=== PATIENT | male | born 1935 | race Caucasian/White ===

== ENCOUNTER 2017-10-08 11:55 | Emergency (ER) | payer OTHER, MEDICARE ==
[~2017-10-08] VITALS: Ht 177.8 cm; Wt 83.0 kg
--- NOTE | ~2017-10-08 | EKG ---
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
[~2017-10-08 11:55] MED LIST: ASPIR 8181 M1 PO; FENTANYL PA25 MCG/HR; IBUPROFEN 800800 MG PO; MEDROLDOSEPACK PO; NABUMETONE 500500 M1; NORCO 5-325 TA1 EACH PO; TRAMADOL 50 MG50 MG; TRILIPIX135 MG
[2017-10-08 12:53] LABS: HEMATOCRIT 47.6 % (42.0-52.0); HEMOGLOBIN 16.2 gm/dL (14.0-18.0); MCH 32.3 pg (26.0-34.0); MCHC 34.1 g/dL (28.0-37.0); MCV 94.6 fL (80.0-100.0); RBC 5.03 mil/uL (4.50-6.00); RDW 13.1 % (10.5-14.5); WBC 13.3 thou/uL (4.0-11.0)
[2017-10-08] MEDS ORDERED: VITAMIN D2000 UNIT PO (13:04)
[2017-10-08] MEDS ORDERED: ARICEPT 5 MG TAB5 MG PO (13:04)
[2017-10-08] MEDS ORDERED: NAMENDA 10 MG T10 MG PO (13:04)
[2017-10-08 13:05] LABS: ANION GAP 7 mmol/L (7-16); BUN 17 mg/dL (7-18); CALCIUM 9.6 mg/dL (8.5-10.1); CHLORIDE 103 mmol/L (98-107); CO2 29 mmol/L (21-32); CREATININE 1.1 mg/dL (0.7-1.3); GLUCOSE 121 mg/dL (74-106); POTASSIUM 4.4 mmol/L (3.5-5.1); SODIUM 139 mmol/L (136-145)
[2017-10-08 13:14] LABS: TROPONIN-I < 0.04 ng/mL (<0.06)
[2017-10-08 14:32] LABS: URINE BILIRUBIN NEGATIVE (Negative); URINE BLOOD TRACE (Negative); URINE COLOR YELLOW; URINE GLUCOSE-RANDOM* TRACE (Negative); URINE KETONES NEGATIVE (Negative); URINE LEUKOCYTES-REFLEX NEGATIVE (Negative); URINE PROTEIN (DIPSTICK) TRACE (Negative); URINE SPECIFIC GRAVITY 1.025 (1.005-1.035); URINE UROBILINOGEN 0.2 E.U./dl (0.2-1.0)
[2017-10-08 14:40] VITALS: BP 137/71
== END 2017-10-08 14:57 | disposition home or self-care (01) ==
LOC: ER 11:55
PROVIDERS: Emergency Medicine
DX: M79.602 Pain in left arm (principal); M79.652 Pain in left thigh; Z98.890 Other specified postprocedural states

== ENCOUNTER 2018-07-21 18:21 | Emergency (ER) | payer OTHER, MEDICARE ==
[~2018-07-21] VITALS: Ht 177.8 cm; Wt 85.3 kg
--- NOTE | ~2018-07-21 | EKG ---
[place] [address] [facility] [place] [address] ELECTROCARDIOGRAM REPORT Name: PB ARELLANO Room #: DEP [facility] 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
[~2018-07-21 18:21] MED LIST changes: +ARICEPT 5 MG TAB5 MG PO; +NAMENDA 10 MG T10 MG PO; +VITAMIN D2000 UNIT PO
[2018-07-21 20:03] LABS: HEMATOCRIT 45.2 % (42.0-52.0); HEMOGLOBIN 15.3 gm/dL (14.0-18.0); MCHC 33.9 g/dL (28.0-37.0); MCV 94.2 fL (80.0-100.0); RBC 4.8 mil/uL (4.50-6.00); RDW 12.6 % (10.5-14.5)
[2018-07-21 20:15] LABS: ANION GAP 4 mmol/L (7-16); BUN 19 mg/dL (7-18); CALCIUM 9.3 mg/dL (8.5-10.1); CHLORIDE 104 mmol/L (98-107); CO2 28 mmol/L (21-32); CREATININE 1.2 mg/dL (0.7-1.3); GLUCOSE 108 mg/dL (74-106); POTASSIUM 4.1 mmol/L (3.5-5.1); SODIUM 136 mmol/L (136-145)
[2018-07-21] MEDS ORDERED: ATIVAN1 MG PO (20:27)
[2018-07-21 20:28] LABS: ALBUMIN 3.5 g/dL (3.4-5.0); SGOT 42 U/L (15-37); SGPT 35 U/L (30-65); TOTAL BILIRUBIN 0.5 mg/dL (<0.1-1.0); TOTAL PROTEIN 7.3 g/dL (6.4-8.2); TROPONIN-I <0.06 ng/mL (<0.06)
[2018-07-21 21:13] VITALS: BP 150/72
== END 2018-07-21 21:24 | disposition home or self-care (01) ==
LOC: ER 18:21
PROVIDERS: Emergency Medicine
DX: F03.90 Unspecified dementia, unspecified severity, without behavioral disturbance, psychotic disturbance, mood disturbance, and anxiety (principal); Z88.8 Allergy status to other drugs, medicaments and biological substances; Z96.653 Presence of artificial knee joint, bilateral; Z96.642 Presence of left artificial hip joint; Z90.49 Acquired absence of other specified parts of digestive tract; Z90.89 Acquired absence of other organs

== ENCOUNTER 2018-08-08 07:57 | Emergency (ER) | payer OTHER, MEDICARE ==
[~2018-08-08] VITALS: Ht 175.3 cm; Wt 88.5 kg
--- NOTE | ~2018-08-08 | EKG ---
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
[~2018-08-08 07:57] MED LIST changes: +ATIVAN1 MG PO
[2018-08-08 08:32] LABS: HEMOGLOBIN 16.4 gm/dL (14.0-18.0); MCH 32.7 pg (26.0-34.0); MCHC 34.8 g/dL (28.0-37.0); PLATELET COUNT 233 thou/uL (150-400); RDW 13.1 % (10.5-14.5); WBC 7.2 thou/uL (4.0-11.0)
[2018-08-08 08:40] LABS: ANION GAP 11 mmol/L (7-16); BUN 22 mg/dL (7-18); CALCIUM 9.5 mg/dL (8.5-10.1); CHLORIDE 104 mmol/L (98-107); CO2 25 mmol/L (21-32); CREATININE 1.3 mg/dL (0.7-1.3); GLUCOSE 104 mg/dL (74-106); POTASSIUM 3.8 mmol/L (3.5-5.1); SODIUM 140 mmol/L (136-145)
[2018-08-08 08:49] LABS: TROPONIN-I <0.06 ng/mL (<0.06)
[2018-08-08 08:51] LABS: URINE BILIRUBIN NEGATIVE (Negative); URINE BLOOD NEGATIVE (Negative); URINE CLARITY CLEAR; URINE COLOR YELLOW; URINE GLUCOSE-RANDOM* NEGATIVE (Negative); URINE KETONES TRACE (Negative); URINE LEUKOCYTES-REFLEX NEGATIVE (Negative); URINE NITRITE-REFLEX NEGATIVE (Negative); URINE PROTEIN (DIPSTICK) NEGATIVE (Negative); URINE SPECIFIC GRAVITY 1.015 (1.005-1.035)
[2018-08-08 08:57] LABS: SSA (PROTEIN CONFIRMATORY) NEGATIVE (Negative)
[2018-08-08 09:34] LABS: PLATELET ESTIMATE NORMAL
[2018-08-08 10:05] VITALS: BP 181/67
[2018-08-12] MEDS ORDERED: TYLENOL325 MG PO (14:26)
[2018-08-12] MEDS ORDERED: VITAMIN D-32000 UNIT PO (14:27)
[2018-08-12] MEDS ORDERED: ASPIR 8181 M1 PO (14:28)
== END 2018-08-08 10:37 | disposition home or self-care (01) ==
LOC: ER 07:57
PROVIDERS: Student in an Organized Health Care Education/Training Program
DX: Z04.3 Encounter for examination and observation following other accident (principal); W19.XXXA Unspecified fall, initial encounter; Y93.89 Activity, other specified; Y92.89 Other specified places as the place of occurrence of the external cause; Y99.8 Other external cause status; Z96.653 Presence of artificial knee joint, bilateral; Z96.692 Finger-joint replacement of left hand; Z88.8 Allergy status to other drugs, medicaments and biological substances

== ENCOUNTER → 2018-08-12 | Outpatient (CLI) | payer OTHER, MEDICARE ==
[~2018-08-12] MED LIST changes: +TYLENOL325 MG PO; +VITAMIN D-32000 UNIT PO
[2018-08-12 14:30] VITALS: BP 143/81
== END ==
LOC: SEN 08:16
DX: R29.6 Repeated falls (principal); F41.9 Anxiety disorder, unspecified; G47.9 Sleep disorder, unspecified; G31.1 Senile degeneration of brain, not elsewhere classified